=== PATIENT | male | born 1990 | race Caucasian/White ===

== ENCOUNTER 2016-12-30 11:04 | Emergency (ER) | payer BC ==
--- NOTE | 2016-12-30 11:17 | Emergency Department Record ---
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 Patient reports that he was seen at a [facility] in [place], x-rays were negative for fracture. Over the past 2 days however, he has noticed increased pain and swelling over the foot and ankle region. 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 Patient denies pain above the ankle or to his low back. MD Complaint: Extremity pain, Extremity swelling Onset/Timin -: Week(s) Location: Left History of Same: No -: Yes Arthralgia Quality: Aching Consistency: Constant Improves with: Nothing Worsens with: Walking, Weight bearing Associated Symptoms: Denies other symptoms - Related Data Home Medications Medication Instructions Recorded Confirmed Last Taken Rivaroxaban [Xarelto] 15 mg PO DAILY 12/30/16 12/30/16 1 Day Ago ~12/29/16 Previous Rx's Medication Instructions Recorded Hydrocodone/Acetaminophen [Rand 1 each PO Q6H #15 tablet 12/30/16 5-325 Tablet] Allergies Allergy/AdvReac Type Severity Reaction Status Date / Time No Known Drug Allergies Allergy Verified 12/30/16 11:14 Review of Systems Constitutional: Denies: Chills, Fever, Malaise, Night sweats Eyes: Denies: Eye discharge, Eye pain ENT: Denies: Congestion, Ear pain, Epistaxis Respiratory: Denies: Cough, Dyspnea Cardiovascular: Denies: Chest pain, Dyspnea on exertion Endocrine: Denies: Fatigue, Heat or cold intolerance Gastrointestinal: Denies: Abdominal pain, Nausea, Vomiting Genitourinary: Denies: Hematuria, Incontinence, Retention Musculoskeletal: Reports: Arthralgia, Joint swelling. Denies: Back pain, Gout Skin: Reports: Bruising. Denies: Change in color, Change in hair/nails Neurological: Denies: Abnormal gait, Confusion, Headache, Tingling, Tremors Psychiatric: Denies: Anxiety Hematological/Lymphatic: Reports: Blood Clots, Easy bleeding, Easy bruising. Denies: Anemia Physical Exam - General General Appearance: Alert, Oriented x3, Cooperative, Mild distress Limitations: No limitations - Head Head exam: Atraumatic, Normocephalic, Normal inspection Head exam detail: negative: Abrasion, Contusion, Hernandez's sign, General tenderness, Hematoma, Laceration - Eye Eye exam: Normal appearance. negative: Conjunctival injection, Periorbital swelling, Periorbital tenderness, Scleral icterus - ENT Ear exam: negative: Auricular hematoma, Auricular trauma Nasal Exam: negative: Active bleeding, Discharge, Dried blood, Foreign body, Sinus tenderness Mouth exam: negative: Drooling, Laceration, Muffled voice, Tongue elevation - Neck Neck exam: Normal inspection. negative: Meningismus, Tenderness - Respiratory Respiratory exam: Normal lung sounds bilaterally. negative: Respiratory distress, Rhonchi, Stridor, Wheezes - Cardiovascular Cardiovascular Exam: Regular rate, Normal rhythm, Normal heart sounds Peripheral Pulses: 3+: Dorsalis Pedis (L) - GI/Abdominal GI/Abdominal exam: Soft. 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 negative: Calf tenderness - Back Back exam: Denies: CVA tenderness (R), CVA tenderness (L) - Neurological Neurological exam: Alert, Oriented X3 - Psychiatric Psychiatric exam: Normal affect, Normal mood - Skin Skin exam: Normal color. negative: Abrasion Type of lesion: negative: abrasion Course - Reevaluation(s) Reevaluation #1: 12/30/16 12:02 Left foot: Negative Left ankle: Posterior mallelolus fracture Reevaluation #2: 12/30/16 12:11 Case was discussed with Dr. Gonsalves, will place in a fracture boot and crutches with instructions to follow-up in the [facility] next week. Disposition Disposition: Discharge Clinical Impression: Ankle fracture, left Qualifiers: Encounter type: initial encounter Fracture type: closed Qualified Code(s): S82.892A - Other fracture of left lower leg, initial encounter for closed fracture Disposition: Home, Self-Care Condition: (2) Stable Instructions: Ankle Fracture (ED) Additional Instructions: Return to ED if your symptoms or if you have any concerns. Fracture boot as directed. Follow-up with Dr. Gonsalves in 5-7 days as directed. Prescriptions: Hydrocodone/Acetaminophen [Rand 5-325 Tablet] 1 each PO Q6H #15 tablet Referrals: SERVANDO GONSALVES [DOCTOR OF OSTEOPATH] - [facility] [Provider Group] Forms: Patient Portal Access Time of Disposition: 12:04
--- NOTE | 2016-12-30 12:40 | RADIOLOGY REPORT ---
EXAM: LEFT ANKLE HISTORY: PATIENT FELL OFF LADDER A WEEK AGO WITH POSTERIOR MALLEOLUS FRACTURE. TECHNIQUE: Three views of the left ankle were obtained. Comparison: None. Encounter: Subsequent. FINDINGS: On the lateral view there does appear to be a vertical interruption in the posterior malleolus consistent with an essentially undisplaced posterior malleolar fracture. Elsewhere no fracture of the left ankle evident. Mild soft tissue swelling particularly laterally. No dislocation at the ankle evident. IMPRESSION: 1. APPARENT UNDISPLACED FRACTURE OF THE POSTERIOR MALLEOLUS. 2. MILD SOFT TISSUE SWELLING. JOB NUMBER: [id number] [facility]
--- NOTE | 2016-12-30 12:43 | RADIOLOGY REPORT ---
EXAM: LEFT FOOT HISTORY: PATIENT FELL OFF A LADDER A WEEK AGO WITH PAIN LATERAL ASPECT OF THE FOOT. TECHNIQUE: Three views of the left foot were obtained. Comparison: None. Encounter: Subsequent. FINDINGS: The left foot appears intact with no definite fracture of the left foot identified. No dislocation seen. Apparent undisplaced fracture posterior malleolus of the distal tibia incidentally noted, reported on the ankle series from today. IMPRESSION: NO FRACTURE OF THE LEFT FOOT IDENTIFIED. UNDISPLACED POSTERIOR MALLEOLAR FRACTURE AT THE ANKLE REPORTED IN THE ANKLE SERIES TODAY. JOB NUMBER: [id number] [facility]
== END 2016-12-30 12:49 | disposition home or self-care (01) ==
LOC: ER 11:04
DX: S82.62XA Displaced fracture of lateral malleolus of left fibula, initial encounter for closed fracture (principal); M79.672 Pain in left foot; W11.XXXA Fall on and from ladder, initial encounter; Z86.718 Personal history of other venous thrombosis and embolism
CPT/HCPCS: 99283; 99284